=== PATIENT | female | born 2000 | race Caucasian/White ===

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

== ENCOUNTER 2020-05-31 14:48 | Emergency (ER) | payer OTHER ==
[~2020-05-31] VITALS: Ht 157.5 cm; Wt 54.4 kg
[2020-05-31] MEDS ORDERED: LIDODERM1 EACH TOP (15:26)
== END 2020-05-31 15:40 | disposition home or self-care (01) ==
LOC: ED 14:48
DX: M54.5 Low back pain (principal); F17.200 Nicotine dependence, unspecified, uncomplicated
CPT/HCPCS: 99283

== ENCOUNTER → 2020-07-08 | Emergency (ER) | payer OTHER ==
[~2020-07-08] VITALS: Ht 157.5 cm; Wt 53.9 kg
[~2020-07-08] MED LIST changes: +LIDODERM1 EACH TOP
== END ==
LOC: ED 20:26
DX: H57.11 Ocular pain, right eye (principal); R68.84 Jaw pain; F17.200 Nicotine dependence, unspecified, uncomplicated
CPT/HCPCS: 70450; 70487; 80048; 84703; 85025; 99284-25; A9270; Q9967

== ENCOUNTER 2020-11-20 19:42 | Emergency (ER) | payer OTHER ==
[~2020-11-20] VITALS: Ht 157.5 cm; Wt 51.7 kg
[2020-11-21] MEDS ORDERED: PROVENTIL HFA6.7 GM INH (00:20)
== END 2020-11-21 00:28 | disposition home or self-care (01) ==
LOC: ED 19:42
DX: U07.1 COVID-19 (principal); F17.200 Nicotine dependence, unspecified, uncomplicated
CPT/HCPCS: 99284; C9803; U0003

== ENCOUNTER 2020-11-23 19:57 | Emergency (ER) | payer OTHER ==
[~2020-11-23] VITALS: Ht 157.5 cm; Wt 51.7 kg
[~2020-11-23 19:57] MED LIST changes: +PROVENTIL HFA6.7 GM INH
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
[2020-11-23] MEDS ORDERED: BACTRIM DS TAB1 EACH PO (21:59)
[2020-11-23] MEDS ORDERED: IBU600 MG PO (21:59)
[2020-11-23] MEDS ORDERED: CEPHALEXIN500 M1 PO (21:59)
== END 2020-11-23 22:11 | disposition home or self-care (01) ==
LOC: ED 19:57
DX: L02.211 Cutaneous abscess of abdominal wall (principal); L03.311 Cellulitis of abdominal wall; F17.200 Nicotine dependence, unspecified, uncomplicated
CPT/HCPCS: 10060; 99283-25; A9270

== ENCOUNTER 2021-03-07 18:12 | Emergency (ER) | payer OTHER ==
[~2021-03-07] VITALS: Ht 157.5 cm; Wt 52.2 kg
[~2021-03-07 18:12] MED LIST changes: +CEPHALEXIN500 M1 PO; +IBU600 MG PO
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
[2021-03-07] MEDS ORDERED: TYLENOL325 M1 PO (21:38)
[2021-03-07] MEDS ORDERED: DOXYCYCLINE HY100 MG PO (23:43)
[2021-03-07] MEDS ORDERED: ONDANSETRON ODT4 MG PO (23:43)
[2021-03-07] MEDS ORDERED: CEPHALEXIN500 MG PO (23:43)
[2021-03-07] MEDS ORDERED: METRONIDAZOLE500 MG PO (23:43)
[2021-03-07] MEDS ORDERED: IBU800 MG PO (23:43)
--- NOTE | 2021-03-08 07:11 | EKG ---
[facility] [address] [facility] [place] [address] Signed Sinus tachycardia Lateral infarct , age undetermined Abnormal ECG When compared with ECG of 26-FEB-2019 13:06, QRS axis shifted right Lateral infarct is now present Nonspecific T wave abnormality now evident in Lateral leads Confirmed by ROSE CUELLAR MD ([id number]) on 03/08/2021 7:11:45 AM Electronically Signed By: ROSE CUELLAR MD 03/08/21 0711 PATIENT NAME: MONSE JOSE Electrocardiogram DATE OF : [birth year] PHYSICIAN: ROSE CUELLAR MD REPORT #: [id number] REPORT IS CONFIDENTIAL AND NOT TO BE RELEASED WITHOUT AUTHORIZATION
== END 2021-03-08 | disposition home or self-care (01) ==
LOC: ED 18:12
DX: N12 Tubulo-interstitial nephritis, not specified as acute or chronic (principal); F17.200 Nicotine dependence, unspecified, uncomplicated
CPT/HCPCS: 74176; 80053; 81001; 83605; 83690; 84703; 85025; 87040; 87088; 87210; 93005; 93010; 96365; 96375; 99284-25; J0696; J1885; J2405; J7121